=== PATIENT | female | born 1980 | race Caucasian/White ===

== ENCOUNTER → 2018-06-13 11:43 | Outpatient (CLI) | payer OTHER, SELFPAY ==
[2018-06-13 12:35] LABS: Erythrocyte Sedimentation Rate 13 MM/HR (0-20)
[2018-06-13 12:53] LABS: Uric Acid 6.3 mg/dL (2.5-6.2)
[2018-06-13 13:06] LABS: C-Reactive Protein Quant < 0.5 mg/dL (<1.0)
[2018-06-18 18:42] LABS: ANA Pattern Homogeneous; ANA Screen, IFA Positive (Negative)
== END ==
PROVIDERS: Visit Provider Podiatrist
DX: M79.671 Pain in right foot (principal)
CPT/HCPCS: 36415; 84550; 85651; 86038; 86140; 86430; 86812

== ENCOUNTER → 2019-06-06 15:11 | Outpatient (CLI) | payer OTHER, SELFPAY ==
[2019-06-06 16:05] LABS: Add Manual Diff / Slide Review NO; Basophils Absolute Auto 100 /uL (0-100); Basophils Percent Auto 0.9 % (0-2); Eosinophils Absolute Auto 100 /uL (0-450); Eosinophils Percent Auto 1.7 % (2-4); Hemoglobin 13.2 g/dL (12.0-16.0); Lymphocytes Absolute Auto 1900 /uL (1100-4500); Lymphocytes Percent Auto 33.6 % (25-40); Mean Corpuscular HGB Conc 34.6 % (30-36); Mean Corpuscular Volume 92.4 fL (80-100); Monocytes Absolute Auto 500 /uL (0-900); Monocytes Percent Auto 8.9 % (3-14); Neutrophils Absolute Auto 3100 /uL (1500-7000); Neutrophils Percent Auto 54.9 % (50-75); Platelet Count 364 X10^3/uL (150-400); Red Blood Cell Count 4.11 X10^6/uL (4.0-5.2); Red Cell Distribution Width 13.3 % (11.6-14.8); White Blood Cell Count 5.6 X10^3/uL (4.5-11.0)
[2019-06-06 16:27] LABS: Erythrocyte Sedimentation Rate 10 MM/HR (0-20)
[2019-06-06 16:29] LABS: Alanine Aminotransferase 38 IU/L (9-52); Albumin 4.5 g/dL (3.5-5.0); Albumin Globulin Ratio 1.4 (1.0-2.8); Alkaline Phosphatase 54 U/L (38-126); Aspartate Aminotransferase 29 IU/L (14-36); BUN Creatinine Ratio 14.3 (6-22); Bilirubin Total 0.3 mg/dL (0.2-1.3); Blood Urea Nitrogen 10 mg/dL (7-17); C-Reactive Protein Quant 0.9 mg/dL (<1.0); Calcium 9.5 mg/dL (8.4-10.2); Carbon Dioxide 24 mmol/L (22-32); Chloride 105 mmol/L (98-107); Estimated Glomerular Filt Rate > 60.0 mL/min (>60); Globulin 3.2 g/dL (1.7-4.1); Glucose 98 mg/dL (70-100); HEMOLYSIS < 15 (0-50); Potassium 4.1 mmol/L (3.4-5.1); Sodium 140 mmol/L (137-145); Total Protein 7.7 g/dL (6.3-8.2)
== END ==
PROVIDERS: Visit Provider Internal Medicine Rheumatology
DX: M05.79 Rheumatoid arthritis with rheumatoid factor of multiple sites without organ or systems involvement (principal); Z79.899 Other long term (current) drug therapy
CPT/HCPCS: 36415; 80053; 85025; 85651; 86140

== ENCOUNTER → 2020-04-26 13:18 | Outpatient (CLI) | payer OTHER, SELFPAY ==
[2020-04-26 13:57] LABS: Add Manual Diff / Slide Review NO; Basophils Absolute Auto 100 /uL (0-100); Basophils Percent Auto 0.8 % (0-2); Eosinophils Absolute Auto 400 /uL (0-450); Eosinophils Percent Auto 5.3 % (2-4); Hematocrit 34.7 % (36-46); Hemoglobin 12.1 g/dL (12.0-16.0); Lymphocytes Absolute Auto 1600 /uL (1100-4500); Lymphocytes Percent Auto 21.7 % (25-40); Mean Corpuscular Volume 88.6 fL (80-100); Monocytes Absolute Auto 700 /uL (0-900); Neutrophils Absolute Auto 4500 /uL (1500-7000); Neutrophils Percent Auto 62.2 % (50-75); Platelet Count 299 X10^3/uL (150-400); Red Blood Cell Count 3.92 X10^6/uL (4.0-5.2); Red Cell Distribution Width 12.9 % (11.6-14.8); White Blood Cell Count 7.2 X10^3/uL (4.5-11.0)
[2020-04-26 14:13] LABS: Alanine Aminotransferase 9 IU/L (<35); Albumin 3.9 g/dL (3.5-5.0); Albumin Globulin Ratio 1.3 (1.0-2.8); Alkaline Phosphatase 46 U/L (38-126); Aspartate Aminotransferase 16 IU/L (14-36); BUN Creatinine Ratio 12.1 (6-22); Bilirubin Total 0.2 mg/dL (0.2-1.3); Blood Urea Nitrogen 7 mg/dL (7-17); Calcium 9.3 mg/dL (8.4-10.2); Carbon Dioxide 25 mmol/L (22-32); Chloride 105 mmol/L (98-107); Estimated Glomerular Filt Rate > 60.0 mL/min (>60); Globulin 2.9 g/dL (1.7-4.1); Glucose 85 mg/dL (70-100); HEMOLYSIS < 15 (0-50); Potassium 4.1 mmol/L (3.4-5.1); Sodium 136 mmol/L (137-145); Total Protein 6.8 g/dL (6.3-8.2)
[2020-04-26 14:18] LABS: C-Reactive Protein Quant < 0.5 mg/dL (<1.0)
[2020-04-26 14:24] LABS: Erythrocyte Sedimentation Rate 14 MM/HR (0-20)
== END ==
PROVIDERS: PCP Internal Medicine Rheumatology; Referring Provider Internal Medicine Rheumatology; Visit Provider Internal Medicine Rheumatology
DX: M05.79 Rheumatoid arthritis with rheumatoid factor of multiple sites without organ or systems involvement (principal); Z79.899 Other long term (current) drug therapy
CPT/HCPCS: 36415; 80053; 85025; 85651; 86140

== ENCOUNTER → 2020-05-17 13:14 | Outpatient (CLI) | payer OTHER, SELFPAY ==
[2020-05-17 13:46] LABS: Appearance Urine UA CLEAR; Bilirubin Urine UA NEGATIVE (NEGATIVE); Color Urine UA YELLOW; Glucose Urine UA NEGATIVE (Negative); Ketones Urine UA NEGATIVE (NEGATIVE); Leukocyte Esterase Urine UA NEGATIVE (NEGATIVE); Nitrite Urine UA NEGATIVE (Negative); Occult Blood Urine UA NEGATIVE (Negative); Protein Urine UA NEGATIVE (Negative); Urobilinogen Urine UA 0.2 E.U./dL (0.2)
[2020-05-17 13:47] LABS: Add Manual Diff / Slide Review NO; Basophils Absolute Auto 0 /uL (0-100); Basophils Percent Auto 0.2 % (0-2); Eosinophils Absolute Auto 200 /uL (0-450); Eosinophils Percent Auto 3.3 % (2-4); Hematocrit 36.7 % (36-46); Hemoglobin 12.4 g/dL (12.0-16.0); Lymphocytes Absolute Auto 1600 /uL (1100-4500); Lymphocytes Percent Auto 26.9 % (25-40); Mean Corpuscular HGB Conc 33.8 % (30-36); Mean Corpuscular Hemoglobin 29.8 PG (26-34); Mean Corpuscular Volume 88.1 fL (80-100); Monocytes Absolute Auto 700 /uL (0-900); Monocytes Percent Auto 11.9 % (3-14); Neutrophils Absolute Auto 3500 /uL (1500-7000); Neutrophils Percent Auto 57.7 % (50-75); Platelet Count 335 X10^3/uL (150-400); Red Blood Cell Count 4.17 X10^6/uL (4.0-5.2); Red Cell Distribution Width 13.5 % (11.6-14.8); White Blood Cell Count 6.1 X10^3/uL (4.5-11.0)
[2020-05-17 17:04] LABS: Rubella Antibody IgG 27.1 IU/mL (>15)
[2020-05-17 17:21] LABS: HIV 1 & 2 Ab/Ag 4th Gen Combo NEGATIVE (NEGATIVE)
[2020-05-17 17:57] LABS: Hep C Virus Ab w/Reflex Quant NEGATIVE s/c (NEGATIVE); Hepatitis B Surface Antigen NEGATIVE s/c (NEGATIVE)
[2020-05-18 04:12] LABS: RPR Screen Non Reactive (Non Reactive)
[2020-05-18 08:12] LABS: Varicella IgG Antibody 566 index (Immune >165)
== END ==
PROVIDERS: PCP Internal Medicine Rheumatology; Referring Provider Specialist; Visit Provider Specialist
DX: Z34.90 Encounter for supervision of normal pregnancy, unspecified, unspecified trimester (principal)
CPT/HCPCS: 36415; 80055; 81003; 86787; 86803; 86850; 86900; 86901; 87077; 87086; 87389

== ENCOUNTER → 2020-05-31 12:01 | Outpatient (CLI) | payer OTHER, SELFPAY ==
[2020-05-31 15:12] LABS: HCG Quantitative /Beta subunit 16652 mIU/mL
== END ==
PROVIDERS: PCP Internal Medicine Rheumatology; Referring Provider Specialist; Visit Provider Specialist
DX: O20.0 Threatened abortion (principal)
CPT/HCPCS: 36415; 84702

== ENCOUNTER → 2020-06-02 13:16 | Outpatient (CLI) | payer OTHER, SELFPAY ==
[2020-06-02 16:42] LABS: HCG Quantitative /Beta subunit 15002 mIU/mL
== END ==
PROVIDERS: PCP Internal Medicine Rheumatology; Referring Provider Specialist; Visit Provider Specialist
DX: O20.0 Threatened abortion (principal)
CPT/HCPCS: 36415; 84702

== ENCOUNTER → 2021-04-06 09:45 | Outpatient (CLI) | payer OTHER, SELFPAY ==
[2021-04-06 10:22] LABS: Final Volume 0.5 mL; Initial Volume 6.5 mL; Semen 30 min. Liquification? Yes
== END ==
PROVIDERS: PCP Internal Medicine Rheumatology; Referring Provider Obstetrics & Gynecology; Visit Provider Obstetrics & Gynecology
DX: N97.0 Female infertility associated with anovulation (principal)
CPT/HCPCS: 58323

== ENCOUNTER → 2021-05-03 11:08 | Outpatient (CLI) | payer OTHER, SELFPAY ==
[2021-05-03 12:49] LABS: Final Volume 0.5 mL; Initial Volume 6 mL; Semen 30 min. Liquification? Yes
== END ==
PROVIDERS: PCP Internal Medicine Rheumatology; Referring Provider Obstetrics & Gynecology; Visit Provider Obstetrics & Gynecology
DX: N97.0 Female infertility associated with anovulation (principal)
CPT/HCPCS: 58323

== ENCOUNTER → 2021-09-19 14:15 | Outpatient (CLI) | payer OTHER, SELFPAY ==
[2021-09-19 17:35] LABS: Urine N gonorrhoeae NOT DETECTED
[2021-09-19 17:47] LABS: Urine Chlamydia NOT DETECTED
== END ==
PROVIDERS: PCP Internal Medicine Rheumatology; Referring Provider Obstetrics & Gynecology; Visit Provider Obstetrics & Gynecology
DX: Z34.81 Encounter for supervision of other normal pregnancy, first trimester (principal); Z11.3 Encounter for screening for infections with a predominantly sexual mode of transmission; Z3A.10 10 weeks gestation of pregnancy
CPT/HCPCS: 87491; 87591

== ENCOUNTER → 2021-10-04 12:39 | Outpatient (CLI) | payer OTHER, SELFPAY ==
[2021-10-04 13:07] LABS: Add Manual Diff / Slide Review NO; Basophils Absolute Auto 0 /uL (0-100); Basophils Percent Auto 0.3 % (0-2); Eosinophils Absolute Auto 200 /uL (0-450); Eosinophils Percent Auto 2.5 % (2-4); Hematocrit 34.5 % (36-46); Hemoglobin 12.1 g/dL (12.0-16.0); Lymphocytes Absolute Auto 2000 /uL (1100-4500); Lymphocytes Percent Auto 25.4 % (25-40); Mean Corpuscular Hemoglobin 30.2 PG (26-34); Mean Corpuscular Volume 86.1 fL (80-100); Monocytes Absolute Auto 700 /uL (0-900); Monocytes Percent Auto 8.5 % (3-14); Neutrophils Absolute Auto 4900 /uL (1500-7000); Neutrophils Percent Auto 63.3 % (50-75); Platelet Count 334 X10^3/uL (150-400); Red Blood Cell Count 4.01 X10^6/uL (4.0-5.2); Red Cell Distribution Width 13.3 % (11.6-14.8); White Blood Cell Count 7.7 X10^3/uL (4.5-11.0)
[2021-10-04 13:38] LABS: Appearance Urine UA CLEAR; Bilirubin Urine UA NEGATIVE (NEGATIVE); Color Urine UA YELLOW; Glucose Urine UA NEGATIVE (Negative); Ketones Urine UA NEGATIVE (NEGATIVE); Leukocyte Esterase Urine UA NEGATIVE (NEGATIVE); Nitrite Urine UA NEGATIVE (Negative); Occult Blood Urine UA 1+ (Negative); Protein Urine UA NEGATIVE (Negative); Specific Gravity Urine UA <=1.005 (1.000-1.035); Urobilinogen Urine UA 0.2 E.U./dL (0.2)
[2021-10-04 13:48] LABS: pH Urine UA 6.5 (4.5-8.0)
[2021-10-04 14:05] LABS: Bacteria Urine None Seen; RBC Urine 0-1/HPF (0-5/HPF); WBC Urine None Seen (0-5/HPF)
[2021-10-05 08:10] LABS: HSV 2 IGG AB < 0.91 index (0.00-0.90); HSV1IGG > 62.20 index (0.00-0.90); RPR Screen Non Reactive (Non Reactive); Varicella IgG Antibody 512 index (Immune >165)
[2021-10-05 19:03] LABS: HIV 1 & 2 Ab/Ag 4th Gen Combo NEGATIVE (NEGATIVE); Hep C Virus Ab w/Reflex Quant NEGATIVE s/c (NEGATIVE); Hepatitis B Surface Antigen NEGATIVE s/c (NEGATIVE); Rubella Antibody IgG 20.5 IU/mL (>15)
== END ==
PROVIDERS: PCP Internal Medicine Rheumatology; Referring Provider Obstetrics & Gynecology; Visit Provider Obstetrics & Gynecology
DX: O09.521 Supervision of elderly multigravida, first trimester (principal); Z36.0 Encounter for antenatal screening for chromosomal anomalies
CPT/HCPCS: 36415; 80055; 81003; 81015; 81420; 86695; 86696; 86787; 86803; 87086; 87389

== ENCOUNTER → 2021-11-03 10:46 | Outpatient (CLI) | payer OTHER, SELFPAY ==
[2021-11-07 20:54] LABS: AFP Value 27.8 ng/mL (.); Gestational Age Ultrasound (.); Insulin Dep Diabetes No (.); OSBR Risk 1IN 10000 (.); Results Report (.); Test Results *Screen Negative* (.)
== END ==
PROVIDERS: PCP Internal Medicine Rheumatology; Referring Provider Obstetrics & Gynecology; Visit Provider Obstetrics & Gynecology
DX: Z34.82 Encounter for supervision of other normal pregnancy, second trimester (principal); Z3A.16 16 weeks gestation of pregnancy
CPT/HCPCS: 36415; 82105

== ENCOUNTER → 2021-12-01 09:05 | Outpatient (CLI) | payer OTHER, SELFPAY ==
--- NOTE | 2021-12-01 09:06 | DI.US.S_ITS ---
PROCEDURE: US OB >= 14 WEEKS FETUS INDICATIONS: ANATOMY OUTSIDE/PRIOR DATING DATA: Last menstrual period (LMP): 07/10/2021. LMP-based estimated date of delivery (SHIN): 04/26/2022. First dating scan (date and location): 09/19/2021, physician's office. Estimated date of delivery (SHIN) from first dating scan: 04/14/2022. The calculations are made using the ultrasound SHIN of 04/14/2022. TECHNIQUE: Real-time scanning was performed of the fetus, with image documentation and biometric measurements. Endovaginal scanning: Not performed COMPARISON: None. FINDINGS: General: A single living intrauterine gestation is present. Presentation: Transverse with head to the left. Placenta: Placental position is posterior, low lying, with inferior margin 1.5 cm from the internal cervical os. Amniotic fluid index: 16.0 cm, normal range is 5-24 cm. heart rate: 125 beats per minute. Maternal cervical canal: 4.6 cm long. Normal lower limit is 2.5 cm. biometrics: Biparietal diameter: 4.9 cm, 21 weeks 0 days Head circumference: 18.4 cm, 20 weeks 6 days Abdominal circumference: 15.3 cm, 20 weeks 3 days Femur length: 3.8 cm, 22 weeks 2 days Clinically estimated gestational age: 20 weeks 6 days Composite gestational age from present scan: 21 weeks 1 day Estimated weight and percentile: 408 g, 65th percentile Anatomic survey: Neuro: Ventricles are non-dilated at less than 10 mm. Cisterna magna is normal at 3-11 mm. Cerebellum is normal in size and morphology. Nuchal skin fold: Normal at less than 6 mm between 14-21 weeks gestational age. Face: Nose and lips, facial profile are normal. Spine: No evidence for spina bifida. Heart: 4-chambered heart is present, with normal ventricular outflow tracts. Diaphragm: Diaphragm is intact. Stomach: Left-sided stomach is present. Kidneys: No hydronephrosis. Normal is less than 5 mm in 2nd trimester, less than 7 mm in 3rd trimester. Cord: 3-vessel cord has orthotopic insertion. Bladder: Normal in size. Extremities: All 4 extremities identified. IMPRESSION: 1. Living 2nd trimester intrauterine . Current ultrasound age is 2 days greater than clinical age based on initial ultrasound. 2. Low lying placenta, 1.5 cm from the internal cervical os. 3. Otherwise unremarkable anatomical survey. We strive to produce accurate, complete, and clear reports of imaging services. To assist us in improving patient care, this report was composed using standard report templates and voice recognition software. Therefore, it may contain abnormal punctuation, insertions and/or omissions. Occasional wrong-word or sound-alike substitutions may occur. Though we review the report and make efforts to correct it, we do recommend that the report be read carefully in proper context to recognize any text inaccuracies. Dictated by: Wayne Crawford M.D. on 12/01/2021 at 10:35 Approved by: Wayne Crawford M.D. on 12/01/2021 at 10:40
== END ==
PROVIDERS: PCP Internal Medicine Rheumatology; Referring Provider Obstetrics & Gynecology; Visit Provider Obstetrics & Gynecology
DX: O44.42 Low lying placenta NOS or without hemorrhage, second trimester (principal); Z3A.22 22 weeks gestation of pregnancy
CPT/HCPCS: 76811

== ENCOUNTER → 2022-01-13 07:16 | Outpatient (CLI) | payer OTHER, SELFPAY ==
[2022-01-13 08:50] LABS: Hematocrit 30.7 % (36-46); Hemoglobin 10.7 g/dL (12.0-16.0)
[2022-01-13 09:31] LABS: GTT (PREG) 1 Hour PP 50gm Dose 168 mg/dL (76-139)
== END ==
PROVIDERS: PCP Internal Medicine Rheumatology; Referring Provider Obstetrics & Gynecology; Visit Provider Obstetrics & Gynecology
DX: Z34.82 Encounter for supervision of other normal pregnancy, second trimester (principal); Z3A.26 26 weeks gestation of pregnancy
CPT/HCPCS: 36415; 82950; 85014; 85018; 86850

== ENCOUNTER → 2022-01-25 06:59 | Outpatient (CLI) | payer OTHER, SELFPAY ==
[2022-01-25 08:22] LABS: Glucose Fasting Gestational 88 mg/dL (76-95)
[2022-01-25 08:59] LABS: Glucose 1 Hour Gest 128 mg/dL (76-180)
[2022-01-25 10:23] LABS: Glucose Tol Interp,Gestational INTERPRETATION
[2022-01-25 10:51] LABS: Glucose 2 Hour Gest 113 mg/dL (76-155)
[2022-01-25 11:14] LABS: Glucose 3 Hour Gest 62 mg/dL (76-140)
== END ==
PROVIDERS: PCP Internal Medicine Rheumatology; Referring Provider Obstetrics & Gynecology; Visit Provider Obstetrics & Gynecology
DX: O09.92 Supervision of high risk pregnancy, unspecified, second trimester (principal); O99.810 Abnormal glucose complicating pregnancy
CPT/HCPCS: 36415; 82951; 82952

== ENCOUNTER 2022-03-02 17:36 | Observation (INO) | payer OTHER, SELFPAY ==
--- NOTE | 2022-03-02 18:09 | DI.US.S_ITS ---
PROCEDURE: US OB LIMITED INDICATIONS: vaginal bleeding, marginal placenta OUTSIDE/PRIOR DATING DATA: Last menstrual period (LMP): 07/10/2021 LMP-based estimated date of delivery (SHIN): 04/16/2022 First dating scan (date and location): 09/19/2021 Estimated date of delivery (SHIN) from first dating scan: 04/14/2022 The calculations are made using the ultrasound SHIN of 04/14/2022 TECHNIQUE: Real-time scanning was performed of the fetus, with image documentation. Endovaginal scanning: Performed for better visualization of the cervix and placenta. COMPARISON: [facility], [facility], 02/25/2018, 18:06. [facility], US OB >= 14 WEEKS FETUS, 02/14/2022, 16:15. FINDINGS: General: A single living intrauterine gestation is present. Presentation: Cephalic Placenta: Placental position is posterior, without previa. Amniotic fluid index: 20.2 cm, normal range is 5-24 cm. Single deepest vertical pocket is 6.7 cm. heart rate: 131 beats per minute. Maternal cervical canal: 4.4 cm long. Normal lower limit is 2.5 cm. Heterogeneous cystic spaces are seen within the cervix along the endocervical canal. The internal cervical os appears to be closed. Multiple echogenic foci are also seen surrounding the cervix near the internal os, possibly secondary to a prior cerclage procedure. Estimated gestational age from initial scan: 33 weeks 6 days IMPRESSION: 1. Single live intrauterine . 2. Amniotic fluid index within normal limits. 3. Heterogeneous cystic spaces within the cervix along the cervical canal. However, cervix is normal in length at 4.4 cm and the internal cervical os appears to be closed. Findings are of uncertain etiology and clinical significance. Recommend clinical and imaging follow-up. Concordant preliminary findings conveyed to the ordering provider by the blade balancer at the time of the exam. We strive to produce accurate, complete, and clear reports of imaging services. To assist us in improving patient care, this report was composed using standard report templates and voice recognition software. Therefore, it may contain abnormal punctuation, insertions and/or omissions. Occasional wrong-word or sound-alike substitutions may occur. Though we review the report and make efforts to correct it, we do recommend that the report be read carefully in proper context to recognize any text inaccuracies. Dictated by: Sarath Chin M.D. on 03/02/2022 at 19:05 Approved by: Sarath Chin M.D. on 03/02/2022 at 19:14
--- NOTE | 2022-03-02 18:25 | PM.OBTRLD ---
Visit Information Visit Information Date of evaluation: 03/02/22 Primary OB Provider: Jennifer Jones On-call OB Provider: Kellen Almonte Reason for Evaluation: Yes other Comments/Additional reasons for admission: 41-year-old at 33 weeks and 4 days gestation coming in with 3 episodes of slight vaginal bleeding today. Denies contractions and reports good movement. No leaking of fluid. No recent intercourse. [facility] Medical History (Updated 01/07/22 @ 18:56 by Jennifer Jones MD) Anemia (~1999) Chronic headaches Eczema of face HPV (human papilloma virus) infection (~1999) examination following delivery Rheumatoid arthritis (~04/2018) Surgical History (Updated 09/15/21 @ 12:10 by Jermaine Sloan RN) H/O section (~02/25/18) H/O wisdom tooth extraction History of (~02/25/18) History of strabismus surgery (~1988) S/P laparoscopic procedure (~2007) Family History Mother Hypertension Father Prostate cancer Hypertension Grandfather Alcohol abuse Family estrangement Grandmother Cancer Lung cancer Grandfather Family estrangement Grandmother Family estrangement Alcohol abuse Social History marital status: number of children: 1 household members: spouse and children pets and animals: Yes (X 1 dog and X 1 cat) education level: college (Ass. in Science) occupational status: unemployed current occupational exposures/hazards: No special taylor needs: No Smoking Status: Former smoker (Quit 7 years ago) Tobacco: How many years used: 7 second hand exposure: No alcohol intake: former (pre- : social ) substance use type: does not use during the past year weight has: remained stable well-balanced diet: daily or most days daily servings fruits/ve or more times/day caffeine: No Type(s) of exercise: walking frequency: does not exercise
[2022-03-02 19:11] LABS: Appearance Urine UA CLEAR; Bilirubin Urine UA NEGATIVE (NEGATIVE); Color Urine UA YELLOW; Glucose Urine UA NEGATIVE (Negative); Ketones Urine UA NEGATIVE (NEGATIVE); Leukocyte Esterase Urine UA 1+ (NEGATIVE); Nitrite Urine UA NEGATIVE (Negative); Occult Blood Urine UA 3+ (Negative); Protein Urine UA NEGATIVE (Negative); Specific Gravity Urine UA <=1.005 (1.000-1.035); Urobilinogen Urine UA 0.2 E.U./dL (0.2)
[2022-03-02 19:22] LABS: pH Urine UA 6.5 (4.5-8.0)
[2022-03-02 19:26] LABS: Bacteria Urine Few (2-10); Culture Indicated Urine Specimen Cultured; RBC Urine 0-1/HPF (0-5/HPF); Squamous Epithelial Cell Urine None Seen (0-5/HPF); WBC Urine 0-1/HPF (0-5/HPF)
--- NOTE | 2022-03-02 20:34 | PM.OBTRLD ---
Visit Information Visit Information Date of evaluation: 03/02/22 Primary OB Provider: Jennifer Jones On-call OB Provider: Jessica Sawyer Reason for Evaluation: Yes other Comments/Additional reasons for admission: This patient is a 41yo P1 @33 weeks gestation presenting for L&D for evaluation after her second episode of vaginal bleeding today. The patient reports that she has had a previously uncomplicated , until she had a mild amount of dark red, watery bleeding this morning associated with mild cramping. THe bleeding and cramping subsided for a few hours, but returned with bleeding heavy enough to require a pad, prompting her to present to the center. She reports good movement, no pelvic pressure, no UTI symptoms or constipation, no recent intercourse or trauma. She reports a history of term CS x1 with no cervical trauma, no history of LEEP or cervical insufficiency, and no other contributory history. Vital Signs Vital Signs: Normotensive, not tachycardic, afebrile. Due to labor floor staffing, patient evaluated in room without archiving capability. [facility], [facility] Medical History Anemia (~1999) Chronic headaches Eczema of face HPV (human papilloma virus) infection (~1999) examination following delivery Rheumatoid arthritis (~04/2018) Surgical History H/O section (~02/25/18) H/O wisdom tooth extraction History of (~02/25/18) History of strabismus surgery (~1988) S/P laparoscopic procedure (~2007) Family History Mother Hypertension Father Prostate cancer Hypertension Grandfather Alcohol abuse Family estrangement Grandmother Cancer Lung cancer Grandfather Family estrangement Grandmother Family estrangement Alcohol abuse Social History marital status: number of children: 1 household members: spouse and children pets and animals: Yes (X 1 dog and X 1 cat) education level: college (Ass. in Science) occupational status: unemployed current occupational exposures/hazards: No special taylor needs: No Smoking Status: Former smoker (Quit 7 years ago) Tobacco: How many years used: 7 second hand exposure: No alcohol intake: former (pre- : social ) substance use type: does not use during the past year weight has: remained stable well-balanced diet: daily or most days daily servings fruits/ve or more times/day caffeine: No Type(s) of exercise: walking frequency: does not exercise Review of Systems Constitutional Constitutional: Reports system reviewed and no additional complaints, except as documented Gastrointestinal Gastrointestinal: Reports as per HPI Genitourinary Genitourinary: Reports as per HPI Exam Const General: cooperative, healthy appearing, comfortable and well groomed GI Palpation: soft and No tender External Female Exam: normal external appearance Speculum Exam - Vagina: normal appearance of the vagina, no cysts, not erythematous, no lacerations, no lesions, vaginal bleeding (no obvious vaginal source, mucousy and somewhat orange tint), tissue present in vagina and mass Speculum Exam - Cervix: closed, no lesions, no masses and other (cervix notably purple in appearance, but closed os) OB/External & Speculum: tissue present in vagina and vaginal bleeding (no obvious vaginal source, mucousy and somewhat orange tint) Objective Labs Labs: Laboratory Results - last 24 hr 03/02/22 18:35 Urine Color Yellow Urine Appearance Clear Urine pH 6.5 Ur Specific [place] <=1.005 Urine Protein Negative Urine Glucose (UA) Negative Urine Ketones Negative Urine Occult Blood 3+ H Urine Nitrate Negative Urine Bilirubin Negative Urine Urobilinogen 0.2 Ur Leukocyte Esterase 1+ H Urine RBC 0-1/hpf Urine WBC 0-1/hpf Ur Squamous Epith Cells None seen Urine Bacteria Few (2-10) H Ur Culture Indicated? Specimen cultured Evaluation Evaluation Baseline heart rate: 135 Variability: Moderate (11-25) monitor accelerations: Present Monitor Decelerations: Absent Category of Tracing: Reactive Status: Category l Diagnosis, Plan/Disposition Plan/Disposition Plan: This patient presents for evaluation of vaginal bleeding. The speculum exam is notable only for a mild amount of blood in the vault, with an unusual brown/orange tint and mixed with copious clear mucus. The patient has reassuring status and no contractions, and normal placentation on ultrasound. The only abnormality besides the blood itself is the unusual character of the cervix, with evident blood or mucus within the stroma of the cervix itself and an unexplained structure within the cervix vs. some sort of septation. Ddx includes rupture of a cystic structure- as the internal os remains closed, it does not appear to be labor or cervical insufficiency. The patient has no history that clarifies the diagnosis. We discussed that she is stable and her bleeding has largely subsided, and as the patient lives within 5 minutes of the hospital, she was discharged home with strict precautions to return immediately if bleeding or cramping resumes. She is scheduled for a follow up visit tomorrow AM, with repeat ultrasound at that time. OB Disposition: home
== END 2022-03-02 20:45 | disposition home or self-care (01) ==
PROVIDERS: Admitting Provider Family Medicine; PCP Internal Medicine Rheumatology; Referring Provider Family Medicine; Visit Provider Family Medicine
DX: O46.93 Antepartum hemorrhage, unspecified, third trimester (principal); O09.523 Supervision of elderly multigravida, third trimester; Z3A.34 34 weeks gestation of pregnancy
CPT/HCPCS: 59025; 59050; 76815; 76817; 81001; 87086; G0378; G0379

== ENCOUNTER → 2022-03-28 14:21 | Outpatient (CLI) | payer OTHER, SELFPAY ==
[2022-03-29 11:39] LABS: Strep Grp B PCR NEG for Grp B Strep
== END ==
PROVIDERS: PCP Internal Medicine Rheumatology; Visit Provider Obstetrics & Gynecology
DX: Z34.83 Encounter for supervision of other normal pregnancy, third trimester (principal); Z3A.37 37 weeks gestation of pregnancy
CPT/HCPCS: 87653

== ENCOUNTER → 2022-04-03 12:18 | Outpatient (CLI) | payer OTHER, SELFPAY ==
[2022-04-03 14:12] LABS: COVID19 -Nasal RAPID POSITIVE (Negative)
== END ==
PROVIDERS: PCP Internal Medicine Rheumatology; Visit Provider Obstetrics & Gynecology
DX: U07.1 COVID-19 (principal)
CPT/HCPCS: 87635

== ENCOUNTER 2022-04-10 17:12 | Observation (INO) | payer OTHER, SELFPAY ==
[2022-04-10 18:06] LABS: COVID19 -Nasal RAPID Negative (Negative)
== END 2022-04-10 17:15 | disposition home or self-care (01) ==
LOC: LABOR 17:14
PROVIDERS: Admitting Provider Obstetrics & Gynecology; PCP Internal Medicine Rheumatology; Referring Provider Obstetrics & Gynecology; Visit Provider Obstetrics & Gynecology
DX: O09.523 Supervision of elderly multigravida, third trimester (principal); Z3A.39 39 weeks gestation of pregnancy
CPT/HCPCS: 87635; C9803; G0378; G0379

== ENCOUNTER 2022-04-11 05:46 | Inpatient (IN) | payer OTHER, SELFPAY ==
--- NOTE | 2022-04-11 | PATH_ITS ---
[facility] Accession Number: [id number] . 01 Material submitted: . fallopian tube - BILATERAL FALLOPIAN TUBES . 01 Diagnosis: Bilateral Fallopian Tubes, Bilatreal Salpingectomies: Fallopian tubes x2, one with two benign paratubal cysts (up to 10 mm in greatest dimension), complete cross-sections. Negative for atypia or malignancy. Patchy regions of benign, pseudodecidualized stromal change are present. MRV 04/14/2022 1525 Local . 01 Electronically signed: . Milana Monzon MD, Pathologist NPI- [id number] . 01 Gross description: . Received in formalin and labeled with the patient's name and bilateral fallopian tubes and consists of two unoriented fimbriated fallopian tubes. The first measuring 10.5 cm in length and 0.8 cm in max diameter. The serosa is violaceous and smooth with two cystic structures measuring up to 1.0 cm in greatest dimension. The second tube measures 11.5 cm in length and 0.5 cm in greatest diameter. The serosa is violaceous and smooth with a single cystic structure measuring 0.8 cm in greatest dimension. Serial sectioning of both tubes reveals an unremarkable stellate lumen. Tipple Supervisor sections to include entire bisected fimbriae and software sales representative cross sections are submitted with tube 1 in cassette A1 and tube 2 in cassette A2. ([id number]) /[facility] 04/13/2022 1807 Local . 01 Pathologist provided ICD-10: Z98.891, Z3A.39, Z30.2 . 01 CPT . 408654 Specimen Comment: A courtesy copy of this report has been sent to [phone], [phone] Specimen Comment: [id number] Performed at: 01 [facility] [address] [facility], [place], [place] [id number] MD Amilcar Vigil MD Phone: [phone]
[2022-04-11 06:44] LABS: Add Manual Diff / Slide Review NO; Basophils Absolute Auto 100 /uL (0-100); Basophils Percent Auto 0.9 % (0-2); Eosinophils Absolute Auto 100 /uL (0-450); Hematocrit 31.3 % (36-46); Hemoglobin 10.9 g/dL (12.0-16.0); Lymphocytes Absolute Auto 1700 /uL (1100-4500); Lymphocytes Percent Auto 23.1 % (25-40); Mean Corpuscular HGB Conc 34.8 % (30-36); Mean Corpuscular Hemoglobin 30.7 PG (26-34); Mean Corpuscular Volume 88.1 fL (80-100); Monocytes Absolute Auto 700 /uL (0-900); Monocytes Percent Auto 9.3 % (3-14); Neutrophils Absolute Auto 4900 /uL (1500-7000); Neutrophils Percent Auto 65.7 % (50-75); Platelet Count 287 X10^3/uL (150-400); Red Blood Cell Count 3.56 X10^6/uL (4.0-5.2); Red Cell Distribution Width 13.6 % (11.6-14.8); White Blood Cell Count 7.4 X10^3/uL (4.5-11.0)
[2022-04-11] MEDS: LACTATED RINGERS 1,000 ML 100 ML IV ×4 (07:00→20:03)
--- NOTE | 2022-04-11 07:38 | PM.HP.1 ---
History of Present Illness History of Present Illness Date Patient Seen: 04/11/22 Time Patient Seen: 07:38 Chief complaint: INPT Narrative: Patient is a 41-year-old 3 para 1 who presents for a repeat section and bilateral salpingectomy. She is at 39-,2/7 weeks gestation. Patient History Medical History Anemia (~1999) Chronic headaches Eczema of face HPV (human papilloma virus) infection (~1999) examination following delivery Rheumatoid arthritis (~04/2018) Surgical History H/O section (~02/25/18) H/O wisdom tooth extraction History of (~02/25/18) History of strabismus surgery (~1988) S/P laparoscopic procedure (~2007) Family & Social History Family History Mother Hypertension Father Prostate cancer Hypertension Grandfather Alcohol abuse Family estrangement Grandmother Cancer Lung cancer Grandfather Family estrangement Grandmother Family estrangement Alcohol abuse Social History: household members spouse,children Tobacco & Substance use: Smoking Status Never smoker alcohol intake former alcohol intake frequency a few times a month Substance Use Type does not use Meds Home Medications and Allergies Home Medications Medication Instructions Recorded Confirmed Type prenat.vits,judson,bzz-ovyt-jxvrv 1 tab PO DAILY 05/12/20 04/11/22 History certolizumab pegol (Cimzia) 200 mg SUBCUT Q2W 11/24/20 04/11/22 History prednisone 5 mg tablet 5 mg PO Q OTHER DAY 09/15/21 04/11/22 History omeprazole 20 mg capsule,delayed See Rx Instructions .ROUTE 02/22/22 04/11/22 Rx release .COMPLEX #30 cap Allergies Allergy/AdvReac Type Severity Reaction Status Date / Time No Known Allergies Allergy Verified 04/11/22 06:18 Exam Narrative Exam Narrative: HEENT: No thyromegaly, no anterior cervical or supraclavicular lymphadenopathy. Lungs:Clear to auscultation bilaterally, no wheezes. Cardiovascular: Regular rate and rhythm, no murmurs, rubs, or gallops. Abdomen: Well-healed Pfannenstiel scar. No hepatosplenomegaly. No masses palpable. Fundal height: 39 cm Estimated weight: 7-1/2 lb Extremities: Trace edema Objective Labs Result Diagrams: 04/11/22 06:30 Labs: Laboratory Results - last 24 hr 04/11/22 04/11/22 06:30 06:30 WBC 7.4 RBC 3.56 L Hgb 10.9 L Hct 31.3 L MCV 88.1 MCH 30.7 MCHC 34.8 RDW 13.6 Plt Count 287 Neut % (Auto) 65.7 Lymph % (Auto) 23.1 L [place] % (Auto) 9.3 Eos % (Auto) 1.0 L Baso % (Auto) 0.9 Neut # (Auto) 4900 Lymph # (Auto) 1700 [place] # (Auto) 700 Eos # (Auto) 100 Baso # (Auto) 100 Blood Type O Negative Antibody Screen Negative Assessment & Plan Assessment & Plan narrative: Assessment: 41-year-old 3 para 1 at 39-,2/7 weeks gestation with a previous section and desires permanent sterilization Plan: Repeat low-transverse section and bilateral salpingectomy The risks, benefits, and alternatives to the procedure were explained to the patient. The risks including bleeding, infection, injury to the bowel, bladder, or ureters. She understands these risks and agrees to proceed. A full par Q was held and consent form was signed. COVID-19 COVID-19 status: Negative Result date/Date tested (Pos, Neg/Pending): 04/10/22 Time Spent With Patient Time with patient: less than 30 minutes Critical Care time: I spent a total of [] minutes of critical care time on this patient's care today; this time is exclusive of procedural time.
--- NOTE | 2022-04-11 07:41 | PM.PREOP ---
Pre-operative Note COVID-19 COVID-19 status: Negative Result date/Date tested (Pos, Neg/Pending): 04/10/22 Criteria for continued procedure: Non-surgical alternatives not available or appropriate per current SOC Interval Note History & Physical reviewed/Exam performed by Physician: Yes Changes to H&P: No H&P completed within 30 days and has changed as indicated here:: 04/11/22
[2022-04-11] MEDS: CEFAZOLIN 2 GM/20 ML SYRINGE IV (08:05)
[2022-04-11] MEDS: TRANEXAMIC ACID 1,000 MG in SODIUM CHLORIDE 0.9% 100 ML 200 MG IV (08:38)
--- NOTE | 2022-04-11 08:41 | SUR.OPER ---
Supine on Padded OR bed, head on pillow, safety belt at thigh, arms secured on padded arm boards at <90 degrees abduction. Bump under right buttock. Legs uncrossed with pillow under knees, gel pad to heels, tape over blanket to lower legs. Gel pad placed between urinary catheter tubing and posterior thigh.
--- NOTE | 2022-04-11 08:41 | SUR.OPER ---
Viable baby boy delivered at 0824. Placenta delivered. Placenta and cord blood tubes X2 given to L&D RN.
[2022-04-11] MEDS: TRIAMCINOLONE 40 MG/ML VIAL 30 MG IM (08:52)
[2022-04-11 09:37] VITALS: BP 114/69; PULSE 68; RESP 18; TEMP 36.1; O2SAT 97
--- NOTE | 2022-04-11 09:37 | P.OP_ITS ---
Operative Date/Time/Diagnoses Date of procedure: 04/11/22 Time of procedure: 09:37 Pre-op diagnosis: 39-,2/7 weeks gestation Keloid scar Previous section Desires sterilization Mass in old scar Post-op diagnosis: same Procedure & Clinicians Procedure: Repeat low-transverse section Excision of keloid scar Excision of mass measuring 3 cm x 1 and 0.5 cm in the right lower edge of the scar Bilateral salpingectomy Same procedure as scheduled: Yes Indications: 39-,2/7 weeks gestation Previous section Desires permanent sterilization Surgeon: Jennifer Jones Click Yes if Unassisted: No Scout Sniper: Jessica Sawyer Reason for Scout Sniper: The academic assistant was necessary upon entering the abdomen with retraction. She was necessary for entry into the uterus and delivery of the . Upon leaving t he abdomen at she retracted and clip suture as well as closed the contralateral fascia. Anesthesia Type: Spinal (With Duramorph) Operative Notes Findings: Live male infant in the L OT presentation Some adhesions in the fascial layer Normal left tube and ovary Right ovary bifurcated with 2 small pieces Normal right tube Closure Type: primary Specimen(s): cord blood, placenta and tubes/segments of tubes Intraoperative meds administered: Duramorph, Ketorolac, Pitocin and Tranexamic acid Applied: Catheter (To continuous drainage) Estimated Blood Loss (mL): 700 Blood products transfused: none Procedure in detail: The patient was taken to the operating room where she was placed in the seated position. Spinal anesthesia with Duramorph was administered. The patient was then placed in the dorsal supine position with a leftward tilt. She was prepped and draped in the usual sterile fashion. A timeout was performed. After spinal analgesia was found to be adequate, the previous incision was excised in an elliptical fashion. The fascia was nicked in the midline, and the incision extended bilaterally with the Levine scissors. The superior aspect of the fascial incision was grasped with a Mcclusky clamps, elevated, and the underlying rectus muscles dissected off sharply and bluntly. Attention was then turned to the inferior aspect of this incision which in a similar fashion was grasped with a Bryant clamps, elevated, and the underlying rectus muscles dissected off sharply and bluntly. The rectus muscles were in the midline. The peritoneum was identified, grasped between 2 hemostats, and entered sharply with the Metzenbaum scissors. This incision was extended superiorly and inferiorly with good visualization of the bladder. The bladder blade was inserted. The vesicouterine peritoneum was identified, grasped with the pickup, and entered sharply with the Metzenbaum scissors. This incision was extended bilaterally, and the bladder flap was created digitally. The bladder blade was reinserted. The lower uterine segment was incised in a transverse fashion with the scalpel. Upon entering the amniotic sac there was moderate amount of clear amniotic fluid. The 's head was delivered with vacuum assistance. The nose and mouth were suctioned with bulb suction. The remainder of the body delivered without difficulty. The cord was double clamped and cut after 1 minute. The was handed off to waiting RN and RT. Cord bloods were obtained. The placenta was delivered manually. The uterus was cleared of all clots and debris. The uterine incision was repaired with #1 chromic in a running interlocking fashion, and a second layer the same suture was used for an imbricating layer. Hemostasis was achieved. The tubes and ovaries were examined and were found to be normal. The left tube was carried out to the fimbriated end with Marietta's. Using the PlasmaKinetic with cautery the mesosalpinx was cauterized and then cut with the Metzenbaum scissors all the way down to the cornua of the uterus. The tube was amputated at the cornua. This was repeated on the patient's right tube. The gutters were cleared of all clots and debris. The bladder flap was reapproximated using 2-0 Vicryl in a running fashion. The parietal peritoneum was closed using 2-0 Vicryl in a running fashion. The fascia was reapproximated using 0 Vicryl in a running fashion. On the right side there was found to be a little herniated sac of fat measuring about 3 cm x 1 and 0.5 cm. This was excised using the cautery. The subcutaneous layer was copiously irrigated with warm normal saline. 7 simple interrupted sutures of 3-0 Vicryl were placed to reapproximate the subcutaneous layer. The skin was closed with 4-0 Monocrylin a subcuticular fashion. 10 cc of a 1 milligram/mL solution of Kenalog was injected subcuticularly. Strips were placed. An ABD and Medipore tape were placed. The uterus was expressed of a small amount of old blood. Sponge, lap, and instrument counts were correct x- 2. The patient tolerated the procedure well, and was taken to PACU in stable c ondition. Complications: none Baby 1: Infant Gender: Male Presentation: vertex Position: Right Occiput Transverse Placental Delivery Description: Expressed Cord Vessel Description: 3 Vessels and Clamped/Cut score (1 min): 8 score (5 min): 8 weight: 7 lb 9 oz Post-operative Condition: stable Disposition: PACU Aftercare: routine postop
[2022-04-11 09:42] VITALS: BP 117/71; PULSE 73; RESP 15; O2SAT 97
[2022-04-11 09:47] VITALS: BP 123/70; PULSE 102; RESP 15; O2SAT 96
[2022-04-11 10:05] VITALS: BP 117/79; PULSE 90; RESP 15; TEMP 36.2; O2SAT 96
[2022-04-11] MEDS: ACETAMINOPHEN 325 MG TABLET 650 MG PO ×2 (11:25→18:01)
[2022-04-11] MEDS: OXYCODONE IR 5 MG TABLET PO ×3 (13:59→22:26)
[2022-04-11] MEDS: KETOROLAC 30 MG/ML VIAL IV (14:55)
[2022-04-11] MEDS: IBUPROFEN 600 MG TABLET PO (20:04)
[2022-04-12] MEDS: ACETAMINOPHEN 325 MG TABLET 650 MG PO ×3 (00:11→13:59)
[2022-04-12] MEDS: IBUPROFEN 600 MG TABLET PO ×2 (02:46→10:38)
[2022-04-12] MEDS: OXYCODONE IR 5 MG TABLET PO ×3 (02:46→12:36)
[2022-04-12 06:28] LABS: Hematocrit 25.3 % (36-46); Hemoglobin 8.8 g/dL (12.0-16.0)
[2022-04-12] MEDS: PRENATAL VIT,CALC/IRON/FOLIC 1 TABLET 1 TAB PO (10:39)
[2022-04-12] MEDS: DOCUSATE 100 MG CAPSULE 200 MG PO (10:39)
[2022-04-12 13:50] VITALS: BP 127/83; PULSE 74; RESP 16; TEMP 36.6
--- NOTE | 2022-04-19 06:00 | P.DS_ITS ---
Discharge Providers Provider Date of admission: 04/11/22 05:46 Discharge Date: 04/12/22 Primary care physician: Kwabena Kim MD Consults: 04/11/22 11:15 Consult to Beam Saw Operator Routine Comment: Discharge provider: Jennifer Jones MD Summary Hospital Course Date Patient Seen: 04/12/22 Time Patient Seen: 07:30 Diagnoses: 39-,2/7 weeks gestation Previous section Keloid scar Mass of the previous section scar Desired permanent sterilization Hospital Course: Patient is a 41-year-old 3 para 2 who presented on April 11, 2022 for a scheduled repeat section, revision of keloid scar, bilateral salpingect topher, and possible removal of the old scar mass. She underwent a repeat section with bilateral salpingectomy without complication. There was a mass with herniated fat in the previous section scar. This was removed. Her postoperative course was unremarkable. She was discharged home on postop day # 1. She was tolerating a diet. was going well. Pain was well controlled. She was able to void without the catheter. No nausea or vomiting. Peripartum Data Delivery Method: Section (Repeat, bilateral salpingectomy, removal of mass of the previous section scar) Laceration Description: None Episiotomy description: None Procedures: Spinal anesthesia Repeat low-transverse section Revision of scar Bilateral salpingectomy Excision of mass of the previous scar complications: none [place] 1: Gender: Male Disposition of : home Status at Discharge Cognitive/behavioral status at discharge: oriented Functional status at discharge: independent ambulation Overall status at discharge: patient is progressing back to baseline Time Spent with Patient Time attestation: Total time spent providing and/or coordinating discharge services: Time spent: Less than 30 minutes Objective Labs Result Diagrams: 04/12/22 06:09 Exam Vital Signs (past 8 hours): Oxygen Delivery Method Room Air Narrative Exam Narrative: Generally: Patient is sitting up in bed, no acute distress Lungs: Clear to auscultation bilaterally Cardiovascular: Regular rate and rhythm Fundus: Firm at U -1 Incision: Clean dry and intact with Aquacel dressing Extremities: Trace edema, negative Homans Discharge Plan Discharge Plan Patient Disposition: Home Provider Discharge Comment: Call with fever, chills, or redness or drainage around the incision Call with bleeding more than a pad in an hour Ibuprofen 600 mg every 6 hours as needed Tylenol 650 mg every 6 hours as needed Stool softener as needed Discharge orders & Medications Prescriptions: New oxycodone 5 mg tablet 5 mg PO Q4H PRN (Reason: pain) Qty: 30 0RF Rx Instructions: 1-2 tabs every 4 hours as needed for pain docusate sodium [Colace] 100 mg capsule 100 mg PO DAILY Qty: 20 0RF Continued Cimzia 400 mg/2 mL (200 mg/mL x 2) syringe kit 200 mg SUBCUT Q2W 0RF prednisone 5 mg tablet 5 mg PO Q OTHER DAY 0RF prenat.vits,judson,hnx-ghlp-axyif Tablet 1 tab PO DAILY 0RF Discontinued omeprazole 20 mg capsule,delayed release(DR/EC) See Rx Instructions .ROUTE .COMPLEX Qty: 30 6RF Dose Instruction: take 1 capsule by mouth once daily Rx Instructions: take 1 capsule by mouth once daily Follow up/Referrals: Jennifer Jones MD [Physician] - 2 Weeks (Incision check on 04/27/2022 @1345 6 wk pp exam on 05/25/2022 @1500) Diet/Activity/Treatments Diet: Regular Activity: No heavy lifting Nothing in the vagina for 6 wks Skin/Wound/Dressing Care Report to your healthcare provider any signs of infection, such as:: chills, fever, increased pain, unusual drainage and unusual redness Dressing: Remove dressing tomorrow Leave steri strips in place Keep incision dry Visit Report/Discharge Packet Instructions: DI for , DI for Prescription Opioid Use Stand Alone Forms: Discharge: Care Discharge Data Primary Care Provider: Kwabena Kim
== END 2022-04-12 15:30 | disposition home or self-care (01) | DRG 785 ==
PROVIDERS: Admitting Provider Obstetrics & Gynecology; PCP Internal Medicine Rheumatology; Referring Provider Obstetrics & Gynecology; Visit Provider Obstetrics & Gynecology
PROC: 10D00Z1 Extraction of Products of Conception, Low, Open Approach (ICD-10-PCS; CPT 59514; principal; 2022-04-11 07:45)
DX: O34.211 Maternal care for low transverse scar from previous cesarean delivery (principal); Z3A.39 39 weeks gestation of pregnancy; Z37.0 Single live birth; Z30.2 Encounter for sterilization; L91.0 Hypertrophic scar; O09.523 Supervision of elderly multigravida, third trimester
CPT/HCPCS: 36415; 58611; 59050; 59510; 59514; 85014; 85018; 85025; 86850; 86900; 86901; 87635; C9803; G0378; G0379; J0690; J1100; J1885; J2250; J2274; J2590; J3010

== ENCOUNTER → 2022-05-31 08:14 | Outpatient (CLI) | payer OTHER, SELFPAY ==
--- NOTE | 2022-05-31 08:16 | DI.US.S_ITS ---
PROCEDURE: US ABDOMEN LIMITED INDICATIONS: Abdominal mass TECHNIQUE: Real-time focused scanning was performed of the abdomen, with image documentation. COMPARISON: [facility], CT, CT ABDOMEN PELVIS W CON, 03/18/2018, 1:09. FINDINGS: Scanning is performed at the area of clinical concern, including with supine and standing positions and Valsalva maneuver. At this site, there is an apparent mild fat containing hernia that measures 3.7 x 3 x 2.1 cm, with an apparent hernia defect measuring 1.6 cm. This hernia moves somewhat with applied pressure. IMPRESSION: Apparent fat containing hernia seen at the area of clinical concern. Please consider a follow-up CT study of the area for further evaluation. Dictated by: Cornelio Segundo M.D. on 05/31/2022 at 9:36 Approved by: Cornelio Segundo M.D. on 05/31/2022 at 9:38
== END ==
PROVIDERS: PCP Internal Medicine Rheumatology; Referring Provider Obstetrics & Gynecology; Visit Provider Obstetrics & Gynecology
DX: K46.9 Unspecified abdominal hernia without obstruction or gangrene (principal)
CPT/HCPCS: 76705

== ENCOUNTER 2022-06-24 12:07 | Emergency (ER) | payer OTHER, SELFPAY ==
[2022-06-24 12:30] VITALS: BP 126/85; PULSE 75; RESP 20; TEMP 37; O2SAT 95
[2022-06-24 14:19] LABS: Add Manual Diff / Slide Review NO; Basophils Absolute Auto 0 /uL (0-100); Basophils Percent Auto 0.2 % (0-2); Eosinophils Absolute Auto 100 /uL (0-450); Hematocrit 37.2 % (36-46); Hemoglobin 12.9 g/dL (12.0-16.0); Lymphocytes Absolute Auto 2400 /uL (1100-4500); Lymphocytes Percent Auto 24.3 % (25-40); Mean Corpuscular HGB Conc 34.6 % (30-36); Mean Corpuscular Hemoglobin 29.6 PG (26-34); Mean Corpuscular Volume 85.5 fL (80-100); Monocytes Absolute Auto 700 /uL (0-900); Monocytes Percent Auto 7.6 % (3-14); Neutrophils Absolute Auto 6500 /uL (1500-7000); Neutrophils Percent Auto 66.9 % (50-75); Platelet Count 359 X10^3/uL (150-400); Red Blood Cell Count 4.35 X10^6/uL (4.0-5.2); Red Cell Distribution Width 13.4 % (11.6-14.8); White Blood Cell Count 9.8 X10^3/uL (4.5-11.0)
[2022-06-24 14:20] LABS: Alanine Aminotransferase 24 IU/L (<35); Albumin Globulin Ratio 1.2 (1.0-2.8); Alkaline Phosphatase 74 U/L (38-126); Aspartate Aminotransferase 24 IU/L (14-36); BUN Creatinine Ratio 9.4 (6-22); Bilirubin Total 0.3 mg/dL (0.2-1.3); Blood Urea Nitrogen 6 mg/dL (7-17); Calcium 9.2 mg/dL (8.4-10.2); Carbon Dioxide 27 mmol/L (22-32); Chloride 105 mmol/L (98-107); Estimated Glomerular Filt Rate > 60 mL/min (>60); Globulin 3.3 g/dL (1.7-4.1); Glucose 94 mg/dL (70-100); HEMOLYSIS < 15 (0-50); Lipase 58 U/L (23-300); Potassium 3.5 mmol/L (3.4-5.1); Sodium 139 mmol/L (137-145); Total Protein 7.3 g/dL (6.3-8.2)
--- NOTE | 2022-06-24 15:29 | ED_ITS ---
HPI - Abdominal Pain <Lenny Amato PA-C - Last Filed: 06/24/22 16:07> General Chief Complaint: Abdominal Pain Stated Complaint: abd pain/hernia Time Seen by Provider: 06/24/22 14:00 Source: patient Mode of arrival: Wheelchair History of Present Illness HPI narrative: Patient is a 41-year-old female to the emergency room today with complaint of right-sided abdominal pain. Patient also admits to having a baby about 10 weeks ago. Patient also states that she has a hernia on the right side is going to be repaired on the of this month. She denies any genital or urinary concerns at this time. States that the pain is a sharp shooting pain that she can feel when she is walking. Feels the pain worse every time she applies pressure in her abdomen. The pain does not shoot does not radiate and is not throbbing. Has normal bowel and bladder bladder function and has no other concerns at this time. Related Data Home Medications Medication Instructions Recorded Confirmed prenat.vits,judson,zha-gvnq-mgomq 1 tab PO DAILY 05/12/20 06/15/22 certolizumab pegol 400 mg/2 mL 200 mg SUBCUT Q2W 11/24/20 06/15/22 (200 mg/mL x2) subcutaneous syringe kit (Cimzia) prednisone 5 mg tablet 5 mg PO Q OTHER DAY 09/15/21 06/15/22 Previous Rx's Medication Instructions Recorded docusate sodium 100 mg capsule 100 mg PO DAILY #20 caps 04/12/22 (Colace) Allergies Allergy/AdvReac Type Severity Reaction Status Date / Time No Known Allergies Allergy Verified 06/15/22 14:29 Review of Systems <Lenny Amato PA-C - Last Filed: 06/24/22 16:07> Review of Systems Narrative: R.O.S.: General: No fever, chills, fatigue or other concerns. Cardiovascular: No chest pain, palpitations or other Cardiovascular related concerns. Respiratory: No S.O.B. or other Respiratory related concerns. HEENT: No congestion, ear pain, rhinorrhea, sore throat or tinnitus Gastrointestinal: Right sided suprapubic pain Skin: No rash or associated abnormalities Neurological: Awake, alert and in not apparent distress. No Headaches, changes in vision or other related neurological concerns. Patient History <Lenny Amato PA-C - Last Filed: 06/24/22 16:07> Medical History Anemia (~1999) Chronic headaches Eczema of face HPV (human papilloma virus) infection (~1999) examination following delivery Rheumatoid arthritis (~04/2018) Surgical History H/O section (~02/25/18) H/O wisdom tooth extraction History of (~02/25/18) History of strabismus surgery (~1988) S/P laparoscopic procedure (~2007) Family History Mother Hypertension Father Prostate cancer Hypertension Grandfather Alcohol abuse Family estrangement Grandmother Cancer Lung cancer Grandfather Family estrangement Grandmother Family estrangement Alcohol abuse Social History marital status: number of children: 1 household members: spouse and children pets and animals: Yes (X 1 dog and X 1 cat) education level: college (Ass. in Science) occupational status: unemployed current occupational exposures/hazards: No special taylor needs: No Smoking Status: Never smoker Tobacco: How many years used: 7 second hand exposure: No alcohol intake: former (pre- : social ) substance use type: does not use during the past year weight has: remained stable well-balanced diet: daily or most days daily servings fruits/ve or more times/day caffeine: No Type(s) of exercise: walking frequency: does not exercise Smoking Status: Never smoker alcohol intake frequency: a few times a month Substance Use Type: does not use Exam <Lenny Amato PA-C - Last Filed: 06/24/22 16:07> Initial Vital Signs Initial Vital Signs: Vital Signs Temperature 98.6 F 06/24/22 12:30 Pulse Rate 75 06/24/22 12:30 Respiratory Rate 20 06/24/22 12:30 Blood Pressure 126/85 06/24/22 12:30 Pulse Oximetry 95 06/24/22 12:30 Oxygen Delivery Method 06/24/22 12:30 Resp Effort & Inspection: normal respiratory effort Auscultation: clear to auscultation bilaterally Cardio Rate: regular rate Rhythm: regular rhythm GI Inspection: normal to inspection Palpation: soft and No tender Percussion: normal to percussion Auscultation: normal bowel sounds <DO Martha Brewster Last Filed: 06/25/22 07:07> Initial Vital Signs Initial Vital Signs: Vital Signs Temperature 98.6 F 06/24/22 12:30 Pulse Rate 75 06/24/22 12:30 Respiratory Rate 20 06/24/22 12:30 Blood Pressure 126/85 06/24/22 12:30 Pulse Oximetry 95 06/24/22 12:30 Oxygen Delivery Method 06/24/22 12:30 Course <Lenny Amato PA-C - Last Filed: 06/24/22 16:07> Orders Ordered: Discontinued Medications Aspirin (Aspirin 81 Mg Chew Tab) 324 mg PO NOW ONE Stop: 06/24/22 15:24 Last Admin: 06/24/22 15:48 Dose: Not Given Documented By: ANIRUDH Sodium Chloride (Normal Saline 0.9%) 1,000 mls @ 150 mls/hr IV CONT [facility] Last Admin: 06/24/22 15:48 Dose: Not Given Documented By: ANIRUDH Vital Signs Vital signs: Vital Signs - 8 hr 06/24/22 12:30 Temperature 98.6 F Pulse Rate 75 Respiratory Rate 20 Blood Pressure 126/85 Pulse Oximetry 95 Oxygen Delivery Method Room Air <Meka Patel DO - Last Filed: 06/25/22 07:07> Orders Ordered: Discontinued Medications Aspirin (Aspirin 81 Mg Chew Tab) 324 mg PO NOW ONE Stop: 06/24/22 15:24 Last Admin: 06/24/22 15:48 Dose: Not Given Documented By: ANIRUDH Sodium Chloride (Normal Saline 0.9%) 1,000 mls @ 150 mls/hr IV CONT [facility] Last Admin: 06/24/22 15:48 Dose: Not Given Documented By: ANIRUDH Vital Signs Vital signs: Vital Signs - 8 hr 06/24/22 12:30 Temperature 98.6 F Pulse Rate 75 Respiratory Rate 20 Blood Pressure 126/85 Pulse Oximetry 95 Oxygen Delivery Method Room Air MDM - Abdominal Pain <JANELLE Nunes Last Filed: 06/24/22 16:07> Lab Data Result diagrams: 06/24/22 12:50 06/24/22 12:50 Labs: Lab Results 06/24/22 06/24/22 06/24/22 Range/Units 12:50 12:50 14:40 WBC 9.8 (4.5-11.0) X10^3/uL RBC 4.35 (4.0-5.2) X10^6/uL Hgb 12.9 (12.0-16.0) g/dL Hct 37.2 (36-46) % MCV 85.5 (80-100) fL MCH 29.6 (26-34) PG MCHC 34.6 (30-36) % RDW 13.4 (11.6-14.8) % Plt Count 359 (150-400) X10^3/uL Neut % (Auto) 66.9 (50-75) % Lymph % (Auto) 24.3 L (25-40) % [place] % (Auto) 7.6 (3-14) % Eos % (Auto) 1.0 L (2-4) % Baso % (Auto) 0.2 (0-2) % Neut # (Auto) 6500 (5961-7383) /uL Lymph # (Auto) 2400 (5087-6427) /uL [place] # (Auto) 700 (0-900) /uL Eos # (Auto) 100 (0-450) /uL Baso # (Auto) 0 (0-100) /uL Sodium 139 (137-145) mmol/L Potassium 3.5 (3.4-5.1) mmol/L Chloride 105 (98-107) mmol/L Carbon Dioxide 27 (22-32) mmol/L BUN 6 L (7-17) mg/dL Creatinine 0.64 (0.52-1.04) mg/dL Estimated GFR > 60 (>60) mL/min BUN/Creatinine Ratio 9.4 (6-22) Glucose 94 (70-100) mg/dL Calcium 9.2 (8.4-10.2) mg/dL Total Bilirubin 0.3 (0.2-1.3) mg/dL AST 24 (14-36) IU/L ALT 24 (<35) IU/L Alkaline Phosphatase 74 (38-126) U/L Total Protein 7.3 (6.3-8.2) g/dL Albumin 4.0 (3.5-5.0) g/dL Globulin 3.3 (1.7-4.1) g/dL Albumin/Globulin Ratio 1.2 (1.0-2.8) Lipase 58 (23-300) U/L Urine RBC None seen (0-5/HPF) Urine WBC 0-1/hpf (0-5/HPF) Ur Squamous Epith Cells 0-1 /hpf (0-5/HPF) Urine Bacteria None seen (None) Ur Culture Indicated? Cult not indicated Point of care testing: Point of Care Testing Test Results Negative Urine Dip Bedside Urine Glucose Negative Bedside Urine Bilirubin - Negative Bedside Urine Ketone - Negative Urine Specific [place] 1.0 Bedside Urine Occult Blood +/- Bedside Urine pH 6 Bedside Urine Protein - Negative Bedside Urine Urobilinogen +/- 1mg Bedside Urine Nitrite - Negative Bedside Urine Leukocytes - Negative Esterase MDM Narrative Medical decision making narrative: Patient is a 41-year-old female presents today with abdominal pain started about 10 weeks ago. Patient also states she had a baby about 10 weeks ago. Also states she has a right-sided hernia that she is scheduled to have repaired of this month. Physical exam was unremarkable except for mild tenderness to palpations patient in the right suprapubic area. Urine was negative for infection test was also negative. Discussed inflammatory muscle concerns and pain related to hernia with patient at this time. Advised patient to refrain from any heavy lifting or strenuous activity involving the abdomen at this time. Also advised patient to take nonsteroidal anti-inflammatories for pain. Patient advised to return to the emergency room should any emergent concerns arise. Patient agrees with plan <Meka Patel DO - Last Filed: 06/25/22 07:07> Lab Data Labs: Lab Results 06/24/22 06/24/22 06/24/22 Range/Units 12:50 12:50 14:40 WBC 9.8 (4.5-11.0) X10^3/uL RBC 4.35 (4.0-5.2) X10^6/uL Hgb 12.9 (12.0-16.0) g/dL Hct 37.2 (36-46) % MCV 85.5 (80-100) fL MCH 29.6 (26-34) PG MCHC 34.6 (30-36) % RDW 13.4 (11.6-14.8) % Plt Count 359 (150-400) X10^3/uL Neut % (Auto) 66.9 (50-75) % Lymph % (Auto) 24.3 L (25-40) % [place] % (Auto) 7.6 (3-14) % Eos % (Auto) 1.0 L (2-4) % Baso % (Auto) 0.2 (0-2) % Neut # (Auto) 6500 (3223-6139) /uL Lymph # (Auto) 2400 (2156-3574) /uL [place] # (Auto) 700 (0-900) /uL Eos # (Auto) 100 (0-450) /uL Baso # (Auto) 0 (0-100) /uL Sodium 139 (137-145) mmol/L Potassium 3.5 (3.4-5.1) mmol/L Chloride 105 (98-107) mmol/L Carbon Dioxide 27 (22-32) mmol/L BUN 6 L (7-17) mg/dL Creatinine 0.64 (0.52-1.04) mg/dL Estimated GFR > 60 (>60) mL/min BUN/Creatinine Ratio 9.4 (6-22) Glucose 94 (70-100) mg/dL Calcium 9.2 (8.4-10.2) mg/dL Total Bilirubin 0.3 (0.2-1.3) mg/dL AST 24 (14-36) IU/L ALT 24 (<35) IU/L Alkaline Phosphatase 74 (38-126) U/L Total Protein 7.3 (6.3-8.2) g/dL Albumin 4.0 (3.5-5.0) g/dL Globulin 3.3 (1.7-4.1) g/dL Albumin/Globulin Ratio 1.2 (1.0-2.8) Lipase 58 (23-300) U/L Urine RBC None seen (0-5/HPF) Urine WBC 0-1/hpf (0-5/HPF) Ur Squamous Epith Cells 0-1 /hpf (0-5/HPF) Urine Bacteria None seen (None) Ur Culture Indicated? Cult not indicated Point of care testing: Point of Care Testing Test Results Negative Urine Dip Bedside Urine Glucose Negative Bedside Urine Bilirubin - Negative Bedside Urine Ketone - Negative Urine Specific [place] 1.0 Bedside Urine Occult Blood +/- Bedside Urine pH 6 Bedside Urine Protein - Negative Bedside Urine Urobilinogen +/- 1mg Bedside Urine Nitrite - Negative Bedside Urine Leukocytes - Negative Esterase Discharge Plan Departure Patient Disposition: Home Clinical Impression: Hernia, abdominal Instructions: Abdominal Hernia Activity Restrictions/Additional Instructions: *You have been diagnosed with [abdomial pain secondary to Abdominal Hernia ]. I suggest you refrain from any strenuous activity to involve carrying or lifting. I also suggest you take OTC nonsteroidal anti-inflammatories for pain. I also suggest she return to the emergency room showing any emergent concerns arise. *What to do: *Please continue to take your regular medications as directed. [ ] New medication prescriptions sent to your pharmacy: [ ] [ ] New medication written as a paper prescription [x ] No new medications given *Please follow up with your primary care provider in 2-3 days, call for an appointment. Let them know you were seen in the Emergency Department and that we ask that you be seen in follow up. We will electronically transmit a record of today's note if your PCP is in our system *If you do not have a primary care provider please contact the [facility] Resource line at [phone]. They will ask some questions about your medical history and help get you set up with a doctor in the community. *Return to Emergency Department if you should have any new, worsening or concerning symptoms, such as [fever greater than 101 F, shaking chills, worsenin g pain, persistent vomiting or other bothersome symptoms] Prescriptions: No Action Cimzia 400 mg/2 mL (200 mg/mL x 2) syringe kit 200 mg SUBCUT Q2W prednisone 5 mg tablet 5 mg PO Q OTHER DAY prenat.vits,judson,jso-imno-cityp Tablet 1 tab PO DAILY docusate sodium [Colace] 100 mg capsule 100 mg PO DAILY Qty: 20 0RF Referrals: Kwabena Kim MD [Primary Care Provider] - Visit Report Forms: Patient Portal/API <Meka Patel DO - Last Filed: 06/25/22 07:07> [facility] Jenniferature Attestation: I was immediately available in the department for consultation. Documentation has been reviewed. I agree with assessment and plan.
[2022-06-24 15:35] LABS: Bacteria Urine None Seen; Culture Indicated Urine Cult Not Indicated; RBC Urine None Seen (0-5/HPF); Squamous Epithelial Cell Urine 0-1 /HPF (0-5/HPF); WBC Urine 0-1/HPF (0-5/HPF)
== END 2022-06-24 15:49 | disposition home or self-care (01) ==
PROVIDERS: Emergency Provider Physician Assistant; PCP Internal Medicine Rheumatology
DX: K46.9 Unspecified abdominal hernia without obstruction or gangrene (principal)
CPT/HCPCS: 36415; 80053; 81003; 81015; 81025; 83690; 85025; 99283

== ENCOUNTER → 2022-07-11 11:49 | Outpatient (CLI) | payer OTHER, SELFPAY ==
[2022-07-11 12:39] LABS: COVID19 -Nasal RAPID Negative (Negative)
== END ==
PROVIDERS: PCP Internal Medicine Rheumatology; Visit Provider Surgery
DX: Z20.822 Contact with and (suspected) exposure to COVID-19 (principal); Z01.812 Encounter for preprocedural laboratory examination
CPT/HCPCS: 87635; C9803

== ENCOUNTER 2022-07-12 12:13 | Day surgery (SDC) | payer OTHER, SELFPAY ==
[2022-07-04 14:23] VITALS: BMI 24.4
[2022-07-12] VITALS (8 sets, daily range): BP systolic 109–123; BP diastolic 70–82; PULSE 61–72; RESP 13–16; TEMP 36.3–36.8; O2SAT 62–97; BMI 25.1
[2022-07-12] MEDS: LACTATED RINGERS 1,000 ML 100 ML IV (12:42)
--- NOTE | 2022-07-12 14:30 | PM.PREOP ---
Pre-operative Note Interval Note History & Physical reviewed/Exam performed by Physician: Yes Changes to H&P: No
[2022-07-12] MEDS: CEFAZOLIN 2 GM/100 ML PREMIX 100 ML IV (14:35)
[2022-07-12] MEDS: BUPIVACAINE 0.5% MDV 50 ML INJ (14:46)
--- NOTE | 2022-07-12 14:48 | SUR.OPER ---
Supine on padded OR bed, head on pillow, arms secured on padded arm boards at <90 degrees abduction, legs uncrossed, safety belt at thigh, tape over blanket over lower legs.
--- NOTE | 2022-07-12 15:40 | PM.OP.1 ---
Operative Date/Time/Diagnoses Date of procedure: 07/12/22 Time of procedure: 15:40 Pre-op diagnosis: Incisional hernia Post-op diagnosis: same Procedure & Clinicians Procedure: Open repair incisional Caesarean section hernia Same procedure as scheduled: Yes Indications: 41-year-old woman on prednisone and monoclonal antibiody therapy for rheumatoid arthritis developed an incisional hernia following a Caesarean section. She is here for elective open hernia repair Surgeon: Maurizio Bentley Click Yes if Unassisted: Yes Anesthesia Type: General Operative Notes Findings: Omentum herniating lateral to the right rectus muscle. Specimen(s): none sent Estimated Blood Loss (mL): 20 Procedure in detail: Patient was brought to the operating room placed supine the table. Bilateral lower extremity compression devices were applied. General anesthesia was induced she was intubated with an LMA. She was prepped and draped in sterile fashion. Time-out was performed. She received Ancef prior to skin incision. The right aspect of the Caesarean incision was opened. The subcutaneous tissue was divided. The right rectus muscle was identified. Lateral to the right rectus muscle there was an approximately 2 cm fascial defect through which omentum was protruding just superior to the inguinal ligament. The right rectus was then mobilized medially in order to entirely expose the defect. The hernia sac was identified and dissected off of the fascia reduced back into the abdomen it contained omentum. A Bard Ventralex 8 x 12 cm patch was then placed in a sublay position with the anti-adhesive face down. The mesh was then tacked to the inguinal ligament as well as the underside of the rectus muscle using Ethibond. The mesh provided good coverage in all directions. The subcutaneous tissue was then reapproximated using 3-0 Vicryl. The skin was closed with a running Monocryl followed by Dermabond. Complications: none Post-operative Condition: stable Disposition: same day surgery
[2022-07-12] MEDS: ONDANSETRON 4 MG/2 ML INJ IV (15:47)
[2022-07-12] MEDS: HYDROMORPHONE 2 MG INJ IV (15:48)
[2022-07-12] MEDS: KETOROLAC 30 MG/ML VIAL IV (15:48)
[2022-07-12] MEDS: OXYCODONE IR 5 MG TABLET PO (16:05)
--- NOTE | 2022-07-12 16:18 | SUR.PHASEII ---
Pt A&Ox4, reports pain as tolerable, VSS, dressing c/d/i, and ready to transition to phase 2. Report given to JEFFREY Spencer using SBAR with time allowed for questions. Will transfer care now.
[2022-07-12] MEDS: ACETAMINOPHEN 325 MG TABLET 975 MG PO (16:21)
== END 2022-07-12 16:26 | disposition home or self-care (01) ==
PROVIDERS: Referring Provider Surgery; Visit Provider Surgery
PROC: (CPT 49560; principal; 2022-07-12 13:45)
DX: K43.2 Incisional hernia without obstruction or gangrene (principal); M06.9 Rheumatoid arthritis, unspecified
CPT/HCPCS: 49560; 49568; 81025; 82962; J0690; J1100; J1170; J1885; J2250; J2405; J2704; J3010

== ENCOUNTER → 2022-10-10 12:18 | Outpatient (CLI) | payer OTHER, SELFPAY ==
[2022-10-10 13:27] LABS: Influenza A - CEPHEID Flu A POSITIVE (NEGATIVE); Influenza B - CEPHEID Flu B NEGATIVE (NEGATIVE); Respiratory Syncytial Virus Negative (Negative)
[2022-10-10 13:32] LABS: COVID-19 CEPHEID 4-PLEX PCR Negative (Negative)
== END ==
PROVIDERS: Visit Provider Physician Assistant Medical
DX: R05.9 Cough, unspecified (principal)
CPT/HCPCS: 0241U

== ENCOUNTER → 2022-11-24 12:46 | Outpatient (CLI) | payer OTHER, SELFPAY ==
--- NOTE | 2022-11-24 | DI.MG.S_ITS ---
BILATERAL DIGITAL SCREENING MAMMOGRAM 3D/2D WITH CAD: 11/24/2022 CLINICAL: Routine screening. Baseline exam. No prior exams were available for comparison. Both breasts are heterogeneously dense, which may obscure small masses (category c / 51-75% glandular tissue). Current study was also evaluated with a Computer Aided Detection (CAD) system. No significant masses, calcifications, or other findings are seen in either breast. IMPRESSION: NEGATIVE There is no mammographic evidence of malignancy. A 1 year screening mammogram is recommended. This exam was interpreted at Station ID: [id number]. NOTE: For mammograms, a report in lay terms will be sent to the patient. Approximately 15% of breast malignancies will not be visualized mammographically. In the management of a palpable breast mass, a negative mammogram must not discourage biopsy of a clinically suspicious lesion. Electronically Signed By: Bryce Meyer M.D., jr/oh:11/24/2022 14:08:19 letter sent: Normal Exam ACR BI-RADS Category 1: Negative 3341F
== END ==
PROVIDERS: PCP Family Medicine; Referring Provider Family Medicine; Visit Provider Family Medicine
DX: Z12.31 Encounter for screening mammogram for malignant neoplasm of breast (principal)
CPT/HCPCS: 77063; 77067

== ENCOUNTER → 2023-08-07 13:53 | Outpatient (CLI) | payer OTHER, SELFPAY ==
--- NOTE | 2023-08-07 | DI.MRI.S_ITS ---
PROCEDURE: MR FOOT RT WO CON INDICATIONS: Metatarsalgia, right foot TECHNIQUE: Noncontrast sagittal T1 spin echo and T2 fast spin echo with fat saturation, long-axis T1 spin echo and T2 fast spin echo with fat saturation, short-axis T1 spin echo and T2 fast spin echo with fat saturation through the forefoot. COMPARISON: None. FINDINGS: Image quality: Excellent. Bones and joints: No bone marrow contusions or metatarsal stress fractures. Mild osteoarthritic changes are noted throughout midfoot and forefoot with joint space narrowing, subchondral sclerosis and cyst formation more notably involving 1st through 3rd TMT joints and 1st through 5th MTP joints. No suspicious bony lesions. Soft tissues: 1.1 x 2.7 x 1.5 cm cystic structure situated between 2nd and 3rd MTP joints which may represent intermetatarsal bursal fluid versus ganglion cyst in this area. Ill-defined fluid signal measures 0.8 x 2.7 x 2.1 cm in size is also seen situated between 3rd and 4th MTP joints suggestive of bursitis. Moderate amount of fluid within 5th MCP joint capsule is seen without gross intra-articular loose body. The visualized plantar foot muscles demonstrate normal signal and bulk. Visualized flexor and extensor tendons appear intact, without tenosynovitis. The distal insertions of the peroneus brevis and longus tendons appear intact. The principal Lisfranc ligament appears intact. Sagittal images demonstrate no evidence for plantar plate tears. IMPRESSION: 1. Mild osteoarthritic changes in midfoot and forefoot as above. Subcortical cystic changes are noted involving 3rd and 5th metatarsal head and 3rd metatarsal base, subtle erosion secondary to inflammatory arthropathy cannot be excluded. No fracture or dislocation. No metatarsal stress fractures. Nonspecific fluid distension of 5th MTP joint space. No gross intra-articular loose bodies. 2. 1.1 x 2.7 x 1.5 cm cystic structure situated between 2nd and 3rd MTP joints which may represent intermetatarsal bursal fluid versus ganglion cyst in this area. There is also suggestion of 0.8 x 2.7 x 2.1 cm intermetatarsal bursal fluid collection between 3rd and 4th metatarsal heads. 3. Extensor and flexor tendons are grossly intact. Lisfranc ligament is intact Dictated by: Sunil Tucker M.D. on 08/07/2023 at 17:06 Approved by: Sunil Tucker M.D. on 08/07/2023 at 17:12
== END ==
PROVIDERS: PCP Family Medicine; Referring Provider Orthopaedic Surgery Foot and Ankle Surgery; Visit Provider Orthopaedic Surgery Foot and Ankle Surgery
DX: M77.41 Metatarsalgia, right foot (principal)
CPT/HCPCS: 73718

== ENCOUNTER → 2024-05-20 13:54 | Outpatient (CLI) | payer OTHER, SELFPAY ==
--- NOTE | 2024-05-20 13:55 | DI.MRI.S_ITS ---
PROCEDURE: MR FOOT RT WO/W CON INDICATIONS: MASS OF Right foot TECHNIQUE: Noncontrast coronal T1 spin echo and STIR, sagittal T1 spin echo with fat saturation and STIR, axial T1 spin echo and T2 fast spin echo with fat saturation. After the administration of contrast, axial/sagittal/coronal T1 spin echo with fat saturation through the right foot. COMPARISON: [facility], MR, MR FOOT RT WO CON, 08/07/2023, 14:08. FINDINGS: Image quality: Excellent. Bones: Again noted is mild midfoot and forefoot joint osteoarthritis more notably involving 1st MTP joint. 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 No new area of marrow signal abnormality or abnormal enhancement. No fracture or dislocation. No metatarsal stress fractures. Small amount of fluid distending 5th MTP joint space is again seen unchanged from prior study. Soft tissues: Fluid is again seen within intermetatarsal bursa between 3rd and 4th metatarsal head and show very mild heterogeneous enhancement concerning for intermetatarsal bursitis. There is interval resection of previously described cystic lesion involving soft tissue between 2nd and 3rd metatarsal head is no longer seen. Small cystic areas are noted in the soft tissue between 2nd and 3rd metatarsal head/MTP joints measures up to 5-6 mm in size and show no questionable contrast enhancement. No other area of abnormal enhancement is seen. Extensor and flexor tendons are intact. Lisfranc ligament is intact. IMPRESSION: 1. Persistent fluid signal between 3rd and 4th metatarsal heads suggestive of intermetatarsal bursal fluid and bursitis. 2. Interval resection of previously noted cystic lesion in 2nd interspace with residual T2 hyperintense signal and questionable enhancement suggestive of possible recurrence ganglion cyst versus intermetatarsal fluid versus postsurgical scarring. 3. 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 Dictated by: Sunil Tucker M.D. on 05/20/2024 at 17:26 Approved by: Sunil Tucker M.D. on 05/20/2024 at 17:34
== END ==
PROVIDERS: PCP Family Medicine; Referring Provider Orthopaedic Surgery Foot and Ankle Surgery; Visit Provider Orthopaedic Surgery Foot and Ankle Surgery
DX: R22.40 Localized swelling, mass and lump, unspecified lower limb (principal); M19.071 Primary osteoarthritis, right ankle and foot
CPT/HCPCS: 73720; A9579

== ENCOUNTER → 2024-05-28 09:22 | Outpatient (CLI) | payer OTHER, SELFPAY ==
--- NOTE | 2024-05-28 09:23 | DI.MG.S_ITS ---
BILATERAL DIGITAL SCREENING MAMMOGRAM 3D/2D WITH CAD: 05/28/2024 CLINICAL: Routine screening. Comparison is made to exam dated: 11/24/2022 mammogram - [facility]. Both breasts are heterogeneously dense, which may obscure small masses (category c / 51-75% glandular tissue). Current study was also evaluated with a Computer Aided Detection (CAD) system. No significant masses, calcifications, or other findings are seen in either breast. There has been no significant interval change. IMPRESSION: NEGATIVE There is no mammographic evidence of malignancy. A 1 year screening mammogram is recommended. Based on the Tyrer Cuzick model (a risk assessment model) the patient's lifetime risk is 15.4% and her 10 year risk is 2.3%. According to the ACR, ACS, and NCCN guidelines, an annual breast MRI exam along with mammogram is recommended if the patient's lifetime risk is 20% or greater. This exam was interpreted at Station ID: [id number]. NOTE: For mammograms, a report in lay terms will be sent to the patient. Approximately 15% of breast malignancies will not be visualized mammographically. In the management of a palpable breast mass, a negative mammogram must not discourage biopsy of a clinically suspicious lesion. Electronically Signed By: Ayana gomes/oh:05/28/2024 10:24:17 letter sent: Normal Exam ACR BI-RADS Category 1: Negative [id number]
== END ==
LOC: MAMMO 09:22
PROVIDERS: PCP Family Medicine; Referring Provider Family Medicine; Visit Provider Family Medicine
DX: Z12.31 Encounter for screening mammogram for malignant neoplasm of breast (principal); R92.333 Mammographic heterogeneous density, bilateral breasts
CPT/HCPCS: 77063; 77067

== ENCOUNTER → 2024-10-13 10:43 | Outpatient (CLI) | payer OTHER, SELFPAY ==
--- NOTE | 2024-10-13 10:45 | DI.RAD.S_ITS ---
PROCEDURE: XR CHEST 2V INDICATIONS: eval cough and wheezing TECHNIQUE: 2 views of the chest were acquired. COMPARISON: None. FINDINGS: Surgical changes and devices: None. Lungs and pleura: Lungs are clear. No pleural effusions or pneumothorax. Bilateral perihilar bronchial wall thickening with bronchiolar thickening extending to the lung bases, predominantly at the left lung base. Mediastinum: Mediastinal contours are normal. Heart size is normal. Bones and chest wall: No suspicious bony abnormalities. Soft tissues appear unremarkable. IMPRESSION: Mild bilateral basilar predominant bronchiolectasis. Otherwise, no acute cardiothoracic process. Dictated by: Joey Costello M.D. on 10/13/2024 at 13:12 Approved by: Joey Costello M.D. on 10/13/2024 at 13:15
== END ==
PROVIDERS: PCP Family Medicine; Referring Provider Family Medicine; Visit Provider Family Medicine
DX: J47.9 Bronchiectasis, uncomplicated (principal); R05.9 Cough, unspecified
CPT/HCPCS: 71046

== ENCOUNTER → 2024-10-24 09:20 | Outpatient (CLI) | payer OTHER, SELFPAY ==
[2024-10-24 10:20] LABS: Add Manual Diff / Slide Review NO; Basophils Absolute Auto 0 /uL (0-100); Basophils Percent Auto 0.5 % (0-2); Eosinophils Absolute Auto 300 /uL (0-450); Hematocrit 36.2 % (36-46); Hemoglobin 12.2 g/dL (12.0-16.0); Lymphocytes Absolute Auto 2500 /uL (1100-4500); Lymphocytes Percent Auto 42.4 % (25-40); Mean Corpuscular HGB Conc 33.6 % (30-36); Mean Corpuscular Hemoglobin 28.4 PG (26-34); Mean Corpuscular Volume 84.6 fL (80-100); Monocytes Absolute Auto 600 /uL (0-900); Monocytes Percent Auto 9.9 % (3-14); Neutrophils Absolute Auto 2500 /uL (1500-7000); Neutrophils Percent Auto 42.2 % (50-75); Platelet Count 432 X10^3/uL (150-400); Red Blood Cell Count 4.28 X10^6/uL (4.0-5.2); Red Cell Distribution Width 13.8 % (11.6-14.8); White Blood Cell Count 5.9 X10^3/uL (4.5-11.0)
[2024-10-24 10:48] LABS: Alanine Aminotransferase 17 IU/L (<35); Albumin 3.8 g/dL (3.5-5.0); Albumin Globulin Ratio 1.2 (1.0-2.8); Alkaline Phosphatase 63 U/L (38-126); Aspartate Aminotransferase 22 IU/L (14-36); BUN Creatinine Ratio 15.6 (6-22); Bilirubin Total 0.5 mg/dL (0.2-1.3); Blood Urea Nitrogen 10 mg/dL (7-17); C-Reactive Protein Quant < 0.5 mg/dL (<1.0); Calcium 9.5 mg/dL (8.4-10.2); Carbon Dioxide 25 mmol/L (22-32); Chloride 106 mmol/L (98-107); Estimated Glomerular Filt Rate > 60 mL/min (>60); Globulin 3.1 g/dL (1.7-4.1); Glucose 96 mg/dL (70-100); HEMOLYSIS < 15 (0-50); Potassium 4.5 mmol/L (3.4-5.1); Sodium 137 mmol/L (137-145); Total Protein 6.9 g/dL (6.3-8.2)
[2024-10-24 11:44] LABS: Erythrocyte Sedimentation Rate 11 MM/HR (0-20)
[2024-10-27 22:07] LABS: QuantiFERON Mitogen Value >10.00 IU/mL (.); QuantiFERON Nil Value 0.04 IU/mL (.); QuantiFERON TB Gold Plus Negative (Negative); QuantiFERON TB1 Ag Value 0.04 IU/mL (.); QuantiFERON TB2 Ag Value 0.05 IU/mL (.)
== END ==
PROVIDERS: PCP Family Medicine; Referring Provider Internal Medicine Rheumatology; Visit Provider Internal Medicine Rheumatology
DX: M05.9 Rheumatoid arthritis with rheumatoid factor, unspecified (principal); M79.646 Pain in unspecified finger(s); R20.0 Anesthesia of skin
CPT/HCPCS: 36415; 80053; 85025; 85651; 86140; 86480

== ENCOUNTER → 2025-11-11 08:40 | Outpatient (CLI) | payer OTHER, SELFPAY ==
--- NOTE | 2025-11-11 08:42 | DI.MG.S_ITS ---
MM screening mammo BI: 11/11/2025. BI-RADS: 1 CLINICAL: 45-year old female for bilateral screening mammogram. Tyrer-Cuzick lifetime risk of 8.8%. No personal or first-degree family history of breast cancer. PRIOR EXAMS 05/28/2024, 11/24/2022. MAMMOGRAPHY TECHNIQUE: 2D and 3D (tomosynthesis) digital mammographic views obtained, with additional images as needed for full coverage. Current study was also evaluated with a Computer Aided Detection (CAD) system. DENSITY C. The breasts are heterogeneously dense, which may obscure small masses. MAMMOGRAPHY FINDINGS Bilateral: No suspicious mass, asymmetry, microcalcification, or other abnormality seen. IMPRESSION: * No evidence of malignancy. RECOMMENDATIONS Bilateral * Annual screening mammography. OVERALL ASSESSMENT CATEGORY BI-RADS-1: Negative. The [employer] recommends annual screening mammography beginning at age 40 for women with average risk of breast cancer. ELECTRONICALLY SIGNED: Colleen Dahl M.D. on 11/11/2025 at 05:09:10 PM PT Interpreting Station ID: [id number]
== END ==
PROVIDERS: PCP Family Medicine; Referring Provider Family Medicine; Visit Provider Family Medicine
DX: Z12.31 Encounter for screening mammogram for malignant neoplasm of breast (principal); R92.333 Mammographic heterogeneous density, bilateral breasts
CPT/HCPCS: 77063; 77067